=== PATIENT | female | born 2000 ===

== ENCOUNTER 2020-08-04 22:04 | Emergency (ER) | payer OTHER ==
--- NOTE | 2020-08-05 00:54 | EDPHYS ---
Physician Documentation [facility] Name: Yaz Salvador Age: 20 yrs Sex: Female : 2000 Arrival Date: 08/04/2020 Time: 22:07 Bed 14 Private MD: ED Physician Michael Cao HPI: 08/05 06:32 This 20 yrs old Female presents to ER via Ambulatory with complaints of Hair Fallout, tw4 Brusing Easily. 06:32 alopecia. Onset: The symptoms/episode began/occurred 2 week(s) ago. Severity of tw4 symptoms: At their worst the symptoms were moderate in the emergency department the symptoms are unchanged. The patient has not experienced similar symptoms in the past. [employer]: 08/04 23:37 LMP 08/02/2020 jb4 Historical: - Allergies: 23:42 No Known Allergies; jb4 - Home Meds: 23:42 None [Active]; jb4 - PMHx: 23:42 None; jb4 - PSHx: 23:42 ; jb4 - Immunization history:: Adult Immunizations up to date. - Social history:: Smoking status: Reported history of juuling and/or vaping. Patient/guardian denies using alcohol, street drugs. ROS: 08/05 06:32 Constitutional: Negative for fever, chills, and weight loss, Eyes: Negative for injury, tw4 pain, redness, and discharge, Cardiovascular: Negative for chest pain, palpitations, and edema, Respiratory: Negative for shortness of breath, cough, wheezing, and pleuritic chest pain, Abdomen/GI: Negative for abdominal pain, nausea, vomiting, diarrhea, and constipation, Back: Negative for injury and pain, MS/Extremity: Negative for injury and deformity, Skin: Negative for injury, rash, and discoloration, Neuro: Negative for headache, weakness, numbness, tingling, and seizure. Exam: 06:32 Constitutional: This is a well developed, well nourished patient who is awake, alert, tw4 and in no acute distress. Head/Face: Normocephalic, atraumatic. Eyes: Pupils equal round and reactive to light, extra-ocular motions intact. Lids and lashes normal. Conjunctiva and sclera are non-icteric and not injected. Cornea within normal limits. Periorbital areas with no swelling, redness, or edema. ENT: Nares patent. No nasal discharge, no septal abnormalities noted. Tympanic membranes are normal and external auditory canals are clear. Oropharynx with no redness, swelling, or masses, exudates, or evidence of obstruction, uvula midline. Mucous membranes moist. Neck: Trachea midline, no thyromegaly or masses palpated, and no cervical lymphadenopathy. Supple, full range of motion without nuchal rigidity, or vertebral point tenderness. No Meningismus. Chest/axilla: Normal chest wall appearance and motion. Nontender with no deformity. No lesions are appreciated. Cardiovascular: Regular rate and rhythm with a normal S1 and S2. No gallops, murmurs, or rubs. Normal PMI, no JVD. No pulse deficits. Respiratory: Lungs have equal breath sounds bilaterally, clear to auscultation and percussion. No rales, rhonchi or wheezes noted. No increased work of breathing, no retractions or nasal flaring. Abdomen/GI: Soft, non-tender, with normal bowel sounds. No distension or tympany. No guarding or rebound. No evidence of tenderness throughout. Back: No spinal tenderness. No costovertebral tenderness. Full range of motion. Vital Signs: 08/04 23:37 BP 113 / 74; Pulse 86; Resp 16; Temp 98.3(O); Pulse Ox 100% on R/A; Weight 63.5 kg (R); jb4 Height 4 ft. 11 in. (149.86 cm) (R); Pain 5/10; 23:37 Body Mass Index 28.28 (63.50 kg, 149.86 cm) 4 MDM: 08/05 00:51 Patient medically screened. tw4 00:52 Medical screen evaluation completed. [facility] emergency medical condition absent. tw4 06:32 Data reviewed: vital signs, nurses notes. Counseling: I had a detailed discussion with [facility] the patient and/or guardian regarding: the historical points, exam findings, and any diagnostic results supporting the discharge/admit diagnosis. Administered Medications: No medications were administered Disposition: 08/05/20 00:54 Discharged to Home. Impression: Alopecia (capitis) totalis. - Condition is Stable. - Medication Reconciliation Form, Thank You Letter, Antibiotic Education, Prescription Opioid Use form. - Follow up: Private Physician; When: Upon discharge from the Emergency Department; Reason: Recheck today's complaints, Continuance of care, Re-evaluation by your physician. - Problem is new. - Symptoms are unchanged. Signatures: Mateo Cardenas RN RN jb4 Michael Cao MD MD tw4 Corrections: (The following items were deleted from the chart) 01:23 00:54 08/05/2020 00:54 Discharged to Home. Impression: Alopecia (capitis) totalis. jb4 Condition is Stable. Forms are Medication Reconciliation Form, Thank You Letter, Antibiotic Education, Prescription Opioid Use. Follow up: Private Physician; When: Upon discharge from the Emergency Department; Reason: Recheck today's complaints, Continuance of care, Re-evaluation by your physician. Problem is new. Symptoms are unchanged. tw4
--- NOTE | 2020-08-05 00:54 | ER ---
Nurse's Notes [facility] Name: Yaz Salvador Age: 20 yrs Sex: Female : 2000 Arrival Date: 08/04/2020 Time: 22:07 Bed 14 Private MD: Diagnosis: Alopecia (capitis) totalis Presentation: 08/04 23:37 Chief complaint: Patient states: I have been aching when I get home, it is getting jb4 worse. It feels almost like growing pains but 10x worse. I am bruising more easily than normal. My hair is falling out now even when I wash it or dry it, it just falls out in clumps. I have this red shaun under my eyes that may go away for a week at a time but then comes back. This has all been happening since I was 15. It got this bad after I had my daughter at 18. Coronavirus screen: Client denies travel out of the [place] in the last 14 days. At this time, the client does not indicate any symptoms associated with coronavirus-19. Ebola Screen: No symptoms or risks identified at this time. Initial Sepsis Screen: Does the patient meet any 2 criteria? No. Patient's initial sepsis screen is negative. Does the patient have a suspected source of infection? No. Patient's initial sepsis screen is negative. Risk Assessment: Do you want to hurt yourself or someone else? Patient reports no desire to harm self or others. Onset of symptoms was March 29, 2018. Transition of care: patient was not received from another setting of care. 23:37 Method Of Arrival: Ambulatory [facility] 23:37 Acuity: POLI 3 jb4 UX DEVELOPER: 23:37 [facility] 08/02/2020 jb4 Historical: - Allergies: 23:42 No Known Allergies; jb4 - Home Meds: 23:42 None [Active]; jb4 - PMHx: 23:42 None; jb4 - PSHx: 23:42 ; jb4 - Immunization history:: Adult Immunizations up to date. - Social history:: Smoking status: Reported history of juuling and/or vaping. Patient/guardian denies using alcohol, street drugs. Screenin/10 01:22 Abuse screen: Denies threats or abuse. Nutritional screening: No deficits noted. jb4 Tuberculosis screening: No symptoms or risk factors identified. Fall Risk None identified. Assessment: 01:22 General: Appears in no apparent distress. comfortable, Behavior is calm, cooperative, jb4 appropriate for age. Pain: Denies pain. Neuro: Level of Consciousness is awake, alert, obeys commands, Oriented to person, place, time, situation. Cardiovascular: Patient's skin is warm and dry. Respiratory: Airway is patent Respiratory effort is even, unlabored, Respiratory pattern is regular, symmetrical. GI: No deficits noted. No signs and/or symptoms were reported involving the gastrointestinal system. : No deficits noted. No signs and/or symptoms were reported regarding the genitourinary system. EENT: No signs and/or symptoms were reported regarding the EENT system. Derm: Skin is intact, Skin is pink, warm \T\ dry. Musculoskeletal: Circulation, motion, and sensation intact. Range of motion: intact in all extremities. Vital Signs: 08/04 23:37 BP 113 / 74; Pulse 86; Resp 16; Temp 98.3(O); Pulse Ox 100% on R/A; Weight 63.5 kg (R); jb4 Height 4 ft. 11 in. (149.86 cm) (R); Pain 5/10; 23:37 Body Mass Index 28.28 (63.50 kg, 149.86 cm) jb4 ED Course: 22:07 Patient arrived in ED. bp1 23:37 Arm band placed on right wrist. jb4 23:41 Triage completed. jb4 05 00:43 Michael Cao MD is Attending Physician. tw4 01:22 Patient has correct armband on for positive identification. Bed in low position. Call jb4 light in reach. Side rails up X 1. 01:22 No provider procedures requiring assistance completed. Patient did not have IV access jb4 during this emergency room visit. Administered Medications: No medications were administered Outcome: 00:54 Discharge ordered by . tw4 01:22 Medical screen evaluation completed per provider. Patient declined treatment. jb4 01:22 Condition: stable 01:22 Following a medical screening exam, the patient was provided information regarding alternative care sites and resources available per registration personnel. 01:23 Patient left the ED. jb4 Signatures: Mateo Cardenas RN RN 4 Michael Cao MD MD tw4 Carolina Winters bp1 Corrections: (The following items were deleted from the chart) 08/04 23:42 23:37 Acuity: POLI 4 jb4 jb4
[2020-08-05 01:29] VITALS: BP 113/74; TEMP 98.3; O2SAT 100
== END 2020-08-05 01:23 | disposition home or self-care (01) ==
LOC: ER 22:04
DX: L63.0 Alopecia (capitis) totalis (principal)
CPT/HCPCS: 99281